=== PATIENT | female | born 1940 | race Caucasian/White ===

== ENCOUNTER → 2018-01-26 | Outpatient (CLI) | payer MEDICARE ==
--- NOTE | 2018-01-26 14:33 | CT ---
EXAMINATION TYPE: CT chest w con DATE OF EXAM: 01/26/2018 COMPARISON: CT chest April 22, 2015 and older studies HISTORY: Lung nodules, SOB CT DLP: 212.9 mGycm. Automated Exposure Control for Dose Reduction was Utilized. TECHNIQUE: CT scan of the thorax is performed following with IV Contrast, patient injected with 100 mL of Isovue 300. FINDINGS: LUNGS: There is a more prominent calcified 3 mm nodule or granuloma with redemonstration of surroundi ng groundglass opacification posterior right upper lobe axial image 14. Focal pleural thickening late ral right upper lobe axial image 15 is stable. There is calcified 5 mm superior left lower lobe nodul e axial image 20 with surrounding groundglass opacification redemonstrated. There is large is 11 mm r ight lower lobe nodule with surrounding groundglass opacification redemonstrated axial image 30. Ther e is stable calcified nodule posteriorly right lower lobe with surrounding groundglass opacification axial image 34. There is dependent atelectasis in both lower lobes. There is stable 5 x 4 mm groundgl ass nodule posteriorly left lower lobe axial image 36. No new greater than 4 mm noncalcified parenchy mal nodules or masses are identified. MEDIASTINUM: There is stable 12 x 11 mm nodule or enlarged lymph node anterior to ascending aorta axi al image 20 There are no new greater than 1 cm hilar or mediastinal lymph nodes. No cardiomegaly or pericardial effusion is seen. Coronary artery calcification is redemonstrated which is noted marker for coronary artery disease. OTHER: There is 5 mm calculus mid to lower pole level left kidney axial image 67 noted. There is mode rate multilevel disc space narrowing and vacuum disc phenomenon in the thoracolumbar spine with mild to moderate multilevel spurring. IMPRESSION: Calcified nodules redemonstrated presumed benign related to old granulomatous disease. No new suspicious or enlarging noncalcified nodules identified.
== END ==
LOC: RADCTMAIN 13:33
PROVIDERS: ATTEND Family Medicine
DX: R91.1 Solitary pulmonary nodule (principal)
CPT/HCPCS: 71260; Q9967